=== PATIENT | male | born 1970 | race Caucasian/White ===

== ENCOUNTER → 2016-10-31 | Outpatient (CLI) | payer OTHER ==
[2016-06-14 08:42] VITALS: BP 164/100
[~2016-10-31] MED LIST: HYDR-2666 PO
--- NOTE | 2016-10-31 11:15 | KCIC ---
PROCEDURE Left rib radiographs HISTORY Left-sided chest wall pain, left rib pain, fall 1 day ago, hurts to breathe COMPARISON There is no previous exam available. FINDINGS Three views of left ribs are submitted. No displaced acute left rib fracture is identified. IMPRESSION No displaced acute left rib fracture is identified. Electronically signed by: Emmanuel Palma MD (Oct 31, 2016 11:14:13)
--- NOTE | 2016-10-31 11:18 | KCIC ---
PROCEDURE Two-view chest HISTORY Left-sided chest wall pain, left rib pain, fall 1 day ago, hurts to breathe COMPARISON None FINDINGS Two views the chest are submitted. There is no infiltrate, pleural fluid, pneumothorax. Pericardial cardiac silhouette is considered borderline enlarged in size. IMPRESSION There is no infiltrate or pneumothorax. Pericardial cardiac silhouette is borderline in size. Electronically signed by: Emmanuel Palma MD (Oct 31, 2016 11:16:19)
== END | disposition home or self-care (01) ==
LOC: KCIC 10:40
PROVIDERS: ATTEND Physician Assistant Medical
DX: R07.81 Pleurodynia (principal); Z91.81 History of falling
CPT/HCPCS: 71020; 71100

== ENCOUNTER → 2016-11-11 | Outpatient (CLI) | payer OTHER ==
[2016-06-14 08:42] VITALS: BP 164/100
--- NOTE | 2016-11-11 14:39 | KCIC ---
PROCEDURE CT chest without contrast. HISTORY Left-sided chest wall pain. Patient fell mid October. TECHNIQUE Helical CT imaging of the chest is performed without IV contrast. PQRS: One or more the following individualized dose reduction techniques were utilized for the study: 1. Automated exposure control. 2. Adjustment of the mA and/or kV according to patient size. 3. Use of iterative reconstruction technique. COMPARISON Left rib series October 31, 2016. FINDINGS Visualized thyroid is symmetric. There is no axillary or mediastinal adenopathy, there are normal appearing lymph nodes. Limited evaluation of the tony without IV contrast. Great vessels are normal in caliber. Mild coronary artery disease. Cardiac size normal, no pericardial effusion. No pleural effusion. The central airways are patent. Lungs are clear. There is a 1.3 cm left adrenal nodule, attenuation measures 6 Hounsfield units. Nodule is compatible with an adrenal adenoma. No acute compression fracture in the thoracic spine. The sternum is intact. There is acute traumatic nondisplaced fracture of the left lateral 5th rib, image 25. Acute traumatic nondisplaced left anterolateral 6th rib fracture, image 34. IMPRESSION 1. Acute traumatic nondisplaced left 5th and 6th rib fractures. 2. Small left adrenal adenoma. 3. No acute pulmonary process. Electronically signed by: Albin Jones MD (Nov 11, 2016 14:38:45)
== END | disposition home or self-care (01) ==
LOC: KCIC CT 13:47
PROVIDERS: ATTEND Physician Assistant Medical
DX: D35.02 Benign neoplasm of left adrenal gland (principal); S22.32XA Fracture of one rib, left side, initial encounter for closed fracture; W19.XXXA Unspecified fall, initial encounter; Y93.89 Activity, other specified; Y92.89 Other specified places as the place of occurrence of the external cause; Y99.8 Other external cause status
CPT/HCPCS: 71250

== ENCOUNTER → 2020-07-02 | Outpatient (CLI) | payer SELFPAY ==
[2016-06-14 08:42] VITALS: BP 164/100
[~2020-07-02] MED LIST changes: -HYDR-2666 PO; +HYDR-2761 PO
--- NOTE | 2020-07-02 13:01 | KCIC ---
EXAM: CT coronary artery calcium screening; radiologist over read. HISTORY: Coronary artery calcium screening. Family history of coronary artery disease. TECHNIQUE: Computed tomographic images of the chest were obtained without contrast. Multiplanar reformatting was performed. *One or more of the following individualized dose reduction techniques were utilized for this examination: 1. Automated exposure control. 2. Adjustment of the mA and/or kV according to patient size. 3. Use of iterative reconstruction technique. COMPARISON: None. FINDINGS: The heart is normal in size. The aorta is normal in caliber. There is calcified atherosclerotic plaque involving the coronary arteries. There is no infiltrate, pleural effusion or pneumothorax. There is no suspicious pulmonary nodule. There is no acute finding involving the osseous structures or upper abdomen. Coronary artery calcium score: Left main artery - 0 Left anterior descending - 4 Left circumflex - 1 Right coronary artery - 0 TOTAL = 5 IMPRESSION: 1. Coronary artery calcium score of 5. 2. No incidental thoracic finding. Electronically signed by: Monae Jensen MD (07/02/2020 12:58 PM) [id number]
== END | disposition home or self-care (01) ==
LOC: KCIC CT 12:18
PROVIDERS: ATTEND Physician Assistant Medical
DX: Z13.6 Encounter for screening for cardiovascular disorders (principal); I25.10 Atherosclerotic heart disease of native coronary artery without angina pectoris
CPT/HCPCS: 75571